=== PATIENT | female | born 1960 | race Two or more races ===

== ENCOUNTER 2024-11-11 14:36 | Emergency (ER) | payer MEDICARE, MEDICAID, SELFPAY ==
[2024-11-11 14:36] VITALS: BMI 38.9
[2024-11-11 14:48] VITALS: BP 164/96; PULSE 78; RESP 18; TEMP 36.7; O2SAT 98
--- NOTE | 2024-11-11 15:07 | PD.EDRME ---
Rapid Medical Screening Exam RME Arrival date/time: 11/11/24 14:36 64-year-old female with medical history significant for diabetes, hypothyroid and liver problems presents to the emergency department today with complaints of rashes to bilateral hands Chief Complaint: Skin/Abscess/Foreign Body Time Seen by Provider: 11/11/24 14:39 Vital signs: Vital Signs Temperature 98.0 F 11/11/24 14:48 Pulse Rate 78 11/11/24 14:48 Respiratory Rate 18 11/11/24 14:48 Blood Pressure 164/96 H 11/11/24 14:48 Pulse Oximetry (%) 98 11/11/24 14:48 Oxygen Delivery Method Room Air 11/11/24 14:48
[2024-11-11 15:42] LABS: Basophils # (Auto) 0.1 Thou/mm3 (0.0-0.2); Basophils % (Auto) 1 % (0-2.5); Eosinophils # (Auto) 0.2 Thou/mm3 (0.0-0.5); Eosinophils % (Auto) 2 % (0-10); Hematocrit 41.8 % (36.0-46.0); Hemoglobin 14.6 g/dL (12.0-16.0); Immature Granulocytes % (Auto) 0 % (0-0); Immature Granulocytes Auto 0.02 Thou/mm3 (0.00-0.00); Lymphocytes % (Auto) 40 % (10-50); Mean Corpuscular HGB Conc 34.9 g/dl (31.0-37.0); Mean Corpuscular Hemoglobin 32.7 pg (25.0-35.0); Mean Corpuscular Volume 94 fL (80-100); Monocytes # (Auto) 0.5 Thou/mm3 (0.0-0.8); Monocytes % (Auto) 7 % (0-12); Neutrophils # (Auto) 3.7 Thou/mm3 (1.8-7.7); Neutrophils % (Auto) 50 % (37-80); Nucleated Red Blood Cell % 0 /100 WBC (0); Platelet Count 282 Thou/mm3 (140-440); RDW Standard Deviation 43.4 fL (36.4-46.3); Red Blood Count 4.46 Miln/mm3 (4.00-5.20); White Blood Count 7.4 Thou/mm3 (3.6-11.0)
[2024-11-11 15:59] LABS: Partial Thromboplastin Time 27.5 Seconds (22.0-36.0); Prothrombin Time 11.1 Seconds (9.0-12.2)
[2024-11-11 16:13] LABS: HIV (1&2) Antibody Rapid Non-Reactive
[2024-11-11 16:17] LABS: Alanine Aminotransferase 62 U/L (10-49); Albumin, Serum 4.9 gm/dL (3.4-4.8); Albumin/Globulin Ratio 1.4 (1.2-2.2); Alkaline Phosphatase 84 U/L (46-116); Anion Gap 6 (7-16); Aspartate Amino Transferase 69 U/L (0-34); BUN/Creatinine Ratio 11 Ratio (12-20); Bilirubin,Total 0.5 mg/dL (0.3-1.2); Blood Urea Nitrogen 9 mg/dL (9-23); Chloride 102 mMol/L (98-107); Creatinine (Component) 0.8 mg/dL (0.6-1.3); Globulin 3.5 gm/dL (2.3-3.5); Glucose 146 mg/dL (74-106); Osmolality,Calculated 279 (275-295); Potassium 3.8 mMol/L (3.4-5.1); Sodium 139 mMol/L (136-145); Total Protein 8.4 gm/dL (5.7-8.2); eGFR > 60 See Note
--- NOTE | 2024-11-11 16:38 | EDNOTE_ITS ---
<Statement entered by Sara Pandya MD - 11/12/24 09:15> As co-signing physician, I was present and available for consult prn. I concur with the plan and care as documented by the midlevel provider. ED Skin Abcess FB-RME/HPI General Chief complaint: Skin/Abscess/Foreign Body Stated complaint: RASH ON HANDS Time Seen by Provider: 11/11/24 14:39 Arrival date/time: 11/11/24 14:36 64-year-old female presents emerged department today complaints of rash/sores on bilateral hands patient report symptoms ongoing x 1 week patient reports no fever nausea or vomiting no headache dizziness weakness no chest pain or shortness of breath Limitations: no limitations RME / HPI RME / HPI narrative: 11/11/24 14:36 64-year-old female with medical history significant for diabetes, hypothyroid and liver problems presents to the emergency department today with complaints of rashes to bilateral hands Related Data Home Medications ?Medication ?Instructions ?Recorded ?Confirmed Levothyroxine * (SYNTHROID *) 1 tab PO DAILY ##0 01/04/13 Previous Rx's ?Medication ?Instructions ?Recorded naproxen 500 mg tablet 500 mg PO BID PRN pain #20 tabs 06/11/20 albuterol sulfate 90 mcg/actuation 2 puff inhalation QID PRN 07/28/21 aerosol inhaler shortness of breath or wheezing #8.5 grams azithromycin 250 mg tablet See Rx Instructions PO .COMPLEX #6 07/28/21 tabs albuterol sulfate 90 mcg/actuation 2 inh inhalation Q6H PRN shortness 05/11/24 breath activated powder inhaler of breath or wheezing #1 ea (ProAir RespiClick) Allergies Allergy/AdvReac Type Severity Reaction Status Date / Time No Known Allergies Allergy Verified 11/11/24 14:38 Review of Systems Review of Systems Systems Reviewed: All systems reviewed, normal except as documented Constitutional Constitutional: Reports system reviewed and no additional complaints, except as documented, Denies fever(s) and Denies headache(s) Eyes Eyes: Reports system reviewed and no additional complaints, except as documented and Denies blurry vision ENT Ears, Nose, Mouth, and Throat: Reports system reviewed and no additional complaints, except as documented, Denies headache(s), Denies nasal congestion and Denies nasal discharge Cardiovascular Cardiovascular: Reports system reviewed and no additional complaints, except as documented, Denies chest pain and Denies dyspnea Respiratory Respiratory: Reports system reviewed and no additional complaints, except as documented, Denies chest congestion, Denies cough and Denies dyspnea Gastrointestinal Gastrointestinal: Reports system reviewed and no additional complaints, except as documented and Denies abdominal pain Integumentary/Breasts Skin/Breast: Reports system reviewed and no additional complaints, except as documented, Denies rash and Reports other (Skin sores bilateral hands) Neurologic Neurologic: Reports system reviewed and no additional complaints, except as documented, Reports as per HPI and Denies headache(s) Past Medical History Social History SMOKING STATUS: Light (< 1 pack/day) ED Exam General Limitations: Present no limitations General appearance: Present alert and in no apparent distress Head Head exam: Present atraumatic, normocephalic and normal inspection Eye Eye exam: Present normal appearance, PERRL and EOMI; Absent conjunctival injection ENT ENT exam: Present normal exam, normal oropharynx and mucous membranes moist Neck Neck exam: Present normal inspection, full ROM and trachea midline Chest Chest inspection: Present normal inspection and symmetric chest wall rise Respiratory Respiratory exam: Present normal lung sounds bilaterally; Absent respiratory distress, wheezes, stridor or accessory muscle use Cardiovascular Cardiovascular exam: Present regular rate, normal rhythm and normal heart sounds Abdominal Exam Abdominal exam: Present soft and normal bowel sounds Extremities Exam Extremities exam: Present normal inspection and full ROM Back Exam Back exam: Present normal inspection and full ROM Neurological Exam Neurological exam: Present alert, oriented X3, CN II-XII intact, normal gait and reflexes normal; Absent motor sensory deficit Psychiatric Psychiatric exam: Present normal affect and normal mood Skin Skin exam: Present warm, dry and other (Source of bilateral hands) Course Quality Measures none Orders Category Date Time Status CBC Stat Lab 11/11/24 15:02 Completed CMP [Comprehensive Metabolic Panel] Stat Lab 11/11/24 15:02 Completed Cocci Serology IgM with reflex to IgG [Cocci Serology, Lab 11/11/24 15:02 Received Unk History] Stat HIV (1&2) Antibody Rapid Stat Lab 11/11/24 15:02 Completed PT [Prothrombin Time with INR] Stat Lab 11/11/24 15:02 Completed PTT [Partial Thromboplastin Time] Stat Lab 11/11/24 15:02 Completed Sed Rate (ESR) Stat Lab 11/11/24 15:02 Completed Syphilis Stat Lab 11/11/24 15:02 Completed Vital Signs Vital signs: Vital Signs Temperature 98.0 F 11/11/24 14:48 Pulse Rate 78 11/11/24 14:48 Respiratory Rate 18 11/11/24 14:48 Blood Pressure 164/96 H 11/11/24 14:48 Pulse Oximetry (%) 98 11/11/24 14:48 Oxygen Delivery Method Room Air 11/11/24 14:48 O2 saturation 98% room air within limits Skin / Abscess / Foreign Body MDM Narrative MDM Narrative:: 64-year-old female presents emerged department today complaints of rash/sores on bilateral hands patient report symptoms ongoing x 1 week patient reports no fever nausea or vomiting no headache dizziness weakness no chest pain or shortness of breath On exam patient well-appearing patient does not appear ill or toxic patient's not appear in acute distress On exam patient has rashes which appear to be fluid type blisters sores or not diffuse Lab work obtained to rule out acute emergent findings patient has no leukocytosis ESR is normal negative HIV negative syphilis coags normal I explained to the patient I cannot definitively say what this is but she must follow-up with PCP for referral to dermatology Patient discharged home in no distress to follow-up with primary care doctor in the next 24 to 48 hours and for any worsening symptoms to return to the ER immediately Patient data External records reviewed:: [facility] previous records Clinical information provided by:: patient Social determinants that could affect healthcare access:: none Patient has the following chronic illnesses:: See history How is presenting disease/condition affected by chronic disease/condition?: uneffected by Evaluation data The following diagnostics were reviewed and interpreted by me:: lab results Lab and/or radiology exams considered but not ordered:: Labs obtained Interpretation Summary: Reviewed by me Medications / Prescriptions Medications or Prescriptions considered but not ordered:: Given no meds Medication administrations:: Given no meds Consultations Consultation(s) initiated? (list below): No Diagnosis Skin/Abscess Differential Diagnosis: abscess of skin or subcutaneous tissue, viral exanthem, allergic reaction to drug and cellulitis Most likely diagnosis given after review of the tests above:: Skin sores Admission Indicated Admission indicated?: not indicated Admission Request Was there a request for admission?: No Disposition Plan Disposition Plan: Discharge Discharge Attestation Discharge Attestation: The patient and all family members were given an opportunity to ask questions and understood the discharge instructions. Discharge instructions specifically effects, indications for sooner follow up or return to the emergency department, and the expected course of current diagnosis. Patient condition: Stable Discharge Plan Plan Patient Disposition: HOME (Self Care) Disposition Comment: Stable Prescriptions/Referrals Prescriptions/Med Rec: No Action Levothyroxine * (SYNTHROID *) 125 MCG tablet 1 tab PO DAILY Qty: 0 naproxen 500 mg tablet 500 mg PO BID PRN (Reason: pain) Qty: 20 0RF azithromycin 250 mg tablet See Rx Instructions .ROUTE .COMPLEX Qty: 6 0RF Rx Instructions: take 500 mg today (day 1), then 250 mg for 4 days (days 2-5) albuterol sulfate 90 mcg/actuation HFA aerosol inhaler 2 puff inhalation QID PRN (Reason: shortness of breath or wheezing) Qty: 8.5 0RF ProAir RespiClick 90 mcg/actuation aerosol powdr breath activated 2 inh inhalation Q6H PRN (Reason: shortness of breath or wheezing) Qty: 1 0RF Referrals: Hu Lowe MD [Primary Care Provider] - In 1 week Problem List Clinical Impression: Localized skin eruption Patient/Caregiver Discharge Instructions Additional Instructions: Please follow-up with primary care doctor and or get a referral to dermatology for worsening symptoms or concerns return to the ER immediately for further evaluation Print Language: German Stand Alone Forms: Cherise Award Info., Patient Portal Info Letter PA/EDDIE Supervising Physician AV/EDDIE Supervising Physician: Dr. PANDYA
[2024-11-11 17:25] LABS: Sed Rate (ESR) 16 mm/hr (0-30)
[2024-11-11 17:40] LABS: Syphilis Nonreactive (Nonreactive)
[2024-11-12 15:41] LABS: Cocci Serology, IgM Negative (Negative)
[2024-11-14 14:58] LABS: Cocci Serology, IgG Negative (Negative)
== END 2024-11-11 16:58 | disposition home or self-care (01) ==
PROVIDERS: Nurse Practitioner Primary Care; Emergency Provider Emergency Medicine; PCP Family Medicine
DX: R21 Rash and other nonspecific skin eruption (principal)
CPT/HCPCS: 36415; 80053; 85025; 85610; 85652; 85730; 86331; 86635; 86703; 86780; 99283

== ENCOUNTER → 2024-11-28 | Outpatient (CLI) | payer MEDICARE, MEDICAID, SELFPAY ==
--- NOTE | 2024-11-28 10:30 | XR_ITS ---
Examination: Breast ultrasound complete, bilateral Date and time of exam: November 28, 2024 1312 hours INDICATIONS: Mammogram March 24, 2023 14 mm oval mass upper outer quadrant left breast Technique: Real-time grayscale ultrasonographic imaging bilateral breasts, including all 4 quadrants as well as nipple retroareolar and axillary regions. Findings: Sonographic images right and left breast demonstrated no cystic or solid masses IMPRESSION: BI-RADS Category 1: Negative studies
--- NOTE | 2024-11-28 11:30 | XR_ITS ---
Examination: Diagnostic digital mammography, bilateral Computer aided detection 3-D breast Tomosynthesis, bilateral Date and time of exam: November 28, 2024 at 1248 hours INDICATIONS: Outside mammogram December 13, 2022 14 mm focal asymmetry upper outer left breast Technique: Nonmagnified MLO, CC views of the breasts to been obtained, reconstructed from 3-D Tomosynthesis images. R2 computer aided detection program utilized for evaluation of suspicious masses and/or abnormal calcifications. 3-D Tomosynthesis images obtained. Findings: Scattered areas of fibroglandular density No suspicious masses noted Impression: BI-RADS Category 2: Benign findings Return to yearly follow-up mammography.
== END | disposition home or self-care (01) ==
LOC: CDIM 11:59
PROVIDERS: Referring Provider Physician Assistant; Visit Provider Physician Assistant
DX: R92.323 Mammographic fibroglandular density, bilateral breasts (principal)
CPT/HCPCS: 76641; 77062; 77066; G0279